=== PATIENT | female | born 1950 | race Caucasian/White ===

== ENCOUNTER 2018-08-16 12:12 | Emergency (ER) | payer MEDICARE, OTHER ==
[2018-08-16 14:24] LABS: Basophils % (A) 0 %; Eosinophils # (A) 0.2 k/uL (0-0.7); Eosinophils % (A) 2 %; HCT 39.9 % (34.0-46.0); HGB 13.2 gm/dL (11.4-16.0); Lymphocytes # (A) 1.1 k/uL (1.0-4.8); Lymphocytes % (A) 14 %; MCH 30.6 pg (25.0-35.0); MCHC 33.1 g/dL (31.0-37.0); MCV 92.4 fL (80.0-100.0); Mean Platelet Volume 6.9; Monocytes # (A) 0.5 k/uL (0-1.0); Monocytes % (A) 6 %; Neutrophils # (A) 6.4 k/uL (1.3-7.7); Neutrophils % (A) 77 %; Platelet Count 272 k/uL (150-450); RBC 4.31 m/uL (3.80-5.40); RDW 12.6 % (11.5-15.5); WBC 8.3 k/uL (3.8-10.6)
[2018-08-16 14:29] LABS: Appearance,Urine Cloudy (Clear); Bacteria,Urine Occasional /hpf; Bilirubin,Urine Negative (Negative); Blood,Urine Small (Negative); Color,Urine Yellow; Glucose,Urine (UA) Negative (Negative); Ketones,Urine Negative (Negative); Leukocyte Esterase,Urine Moderate (Negative); Mucus,Urine Occasional /hpf; Nitrite,Urine Negative (Negative); Protein,Urine 2+ (Negative); RBC,Urine 27 /hpf (0-5); Specific Gravity,Urine 1.015 (1.001-1.035); Squamous Epithelial Cell,Urine 9 /hpf (0-4); Urobilinogen,Urine <2.0 mg/dL (<2.0); WBC,Urine 6 /hpf (0-5)
[2018-08-16 14:35] LABS: Calcium 9.4 mg/dL (8.4-10.2); Potassium 4.5 mmol/L (3.5-5.1); Total Bilirubin 0.6 mg/dL (0.2-1.3); Total Protein 6.8 g/dL (6.3-8.2)
--- NOTE | 2018-08-16 15:57 | ED ---
General Adult HPI <Jesus Javier - Last Filed: 08/16/18 18:06> - General Source: patient, RN notes reviewed Mode of arrival: ambulatory Limitations: no limitations <Mehdi Hinds - Last Filed: 08/16/18 18:11> - General Chief complaint: Abdominal Pain Stated complaint: lower back & abdominal pain Time Seen by Provider: 08/16/18 15:45 - History of Present Illness Initial comments: Patient is a 68-year-old female presented to the emergency room today with a chief complaint of right-sided flank pain. Patient is not that yesterday she felt some discomfort to the right lower back. She states that she was working in the garden and also was is mostly skeletal. She states it's more she's had increased pain starting from the back radiating around to the right lower quadrant. Patient states that pain is not specifically worse with any movements. She states she did become nauseated. Currently rates pain 7/10 but states that she is comfortable does not believe pain medication. She denies any other complaints currently. Patient denies any recent fever, chills, shortness of breath, chest pain, numbness or tingling, dysuria or hematuria, constipation or diarrhea, headaches or visual changes, or any other complaints. (Mehdi Hinds) - Related Data Previous Rx's Medication Instructions Recorded Ciprofloxacin HCl [Cipro] 500 mg PO Q12HR #14 day 08/16/18 Allergies Allergy/AdvReac Type Severity Reaction Status Date / Time No Known Allergies Allergy Verified 08/16/18 12:24 Review of Systems ROS Other: All systems not noted in ROS Statement are negative. <Jesus Javier - Last Filed: 08/16/18 18:06> ROS Other: All systems not noted in ROS Statement are negative. <Mehdi Hinds - Last Filed: 08/16/18 18:11> ROS Statement: Those systems with pertinent positive or pertinent negative responses have been documented in the HPI. Past Medical History Past Medical History: Hyperlipidemia, Hypertension Additional Past Medical History / Comment(s): chronic back pain History of Any Multi-Drug Resistant Organisms: None Reported Past Surgical History: Hysterectomy, Orthopedic Surgery Past Psychological History: No Psychological Hx Reported Smoking Status: Former smoker Past Alcohol Use History: None Reported Past Drug Use History: None Reported <Mehdi Hinds - Last Filed: 08/16/18 18:11> General Exam <Jesus Javier - Last Filed: 08/16/18 18:06> Limitations: no limitations <Mehdi Hinds - Last Filed: 08/16/18 18:11> - General Exam Comments Initial Comments: General: The patient is awake and alert, in no distress, and does not appear acutely ill. Eye: Extra-ocular movements are intact. No nystagmus. There is normal conjunctiva bilaterally. No signs of icterus. Ears, nose, mouth and throat: There are moist mucous membranes and no oral lesions. Neck: The neck is supple, there is no tenderness or JVD. Cardiovascular: There is a regular rate and rhythm. No murmur, rub or gallop is appreciated. Respiratory: Lungs are clear to auscultation, respirations are non-labored, breath sounds are equal. No wheezes, stridor, rales, or rhonchi. Gastrointestinal: Admits soft on palpation. Patient does have tenderness in the right lower quadrant. Rebound, guarding or CVA tenderness. Musculoskeletal: Normal ROM, no tenderness. Sensation intact. Strength 5/5. Pulses equal bilaterally 2+. Neurological: A&O x 3. CN II-XII intact, There are no obvious motor or sensory deficits. Coordination appears grossly intact. Speech is normal. Skin: Skin is warm and dry and no rashes or lesions are noted. Psychiatric: Cooperative, appropriate mood & affect, normal judgment. (Mehdi Hinds) Course <Jesus Javier - Last Filed: 08/16/18 18:06> <Mehdi Hinds - Last Filed: 08/16/18 18:11> Vital Signs 08/16/18 08/16/18 12:22 17:59 Temperature 98.1 F 97.0 F L Pulse Rate 85 60 Respiratory 20 16 Rate Blood Pressure 122/77 125/59 O2 Sat by Pulse 99 100 Oximetry - Reevaluation(s) Reevaluation #1: 08/16/18 18:06 Patient was reevaluated by myself, Dr. Javier. Patient does have mild discomfort right CVA and minimal discomfort right flank. No ecchymosis. Patient denies any recent trauma. No fever. No white count. Case was discussed in detail with Dr. Decker with urology who will follow up with patient as an outpatient within this week. Patient is notified of this. Patient is also notified of need to bring her actual films that she did have done 1 year ago with her. Patient will be covered with quinolone for week for possible infection. (Jesus Javier) Medical Decision Making - Lab Data Result diagrams: 08/16/18 14:08 08/16/18 14:08 <Jesus Javier - Last Filed: 08/16/18 18:06> - Lab Data Result diagrams: 08/16/18 14:08 08/16/18 14:08 <Mehdi Hinds - Last Filed: 08/16/18 18:11> - Medical Decision Making CT of the abdomen and pelvis reviewed does show a prominent large right kidney. Marked erythematous reticulation seen throughout the right perirenal space. No focal drainable collection. No abnormal gas collection. No hydronephrosis or hydroureter. (Mehdi Hinds) - Lab Data Lab Results 08/16/18 08/16/18 08/16/18 Range/Units 14:08 14:08 14:08 WBC 8.3 (3.8-10.6) k/uL RBC 4.31 (3.80-5.40) m/uL Hgb 13.2 (11.4-16.0) gm/dL Hct 39.9 (34.0-46.0) % MCV 92.4 (80.0-100.0) fL MCH 30.6 (25.0-35.0) pg MCHC 33.1 (31.0-37.0) g/dL RDW 12.6 (11.5-15.5) % Plt Count 272 (150-450) k/uL Neutrophils % 77 % Lymphocytes % 14 % Monocytes % 6 % Eosinophils % 2 % Basophils % 0 % Neutrophils # 6.4 (1.3-7.7) k/uL Lymphocytes # 1.1 (1.0-4.8) k/uL Monocytes # 0.5 (0-1.0) k/uL Eosinophils # 0.2 (0-0.7) k/uL Basophils # 0.0 (0-0.2) k/uL Sodium 139 (137-145) mmol/L Potassium 4.5 (3.5-5.1) mmol/L Chloride 105 (98-107) mmol/L Carbon Dioxide 24 (22-30) mmol/L Anion Gap 10 mmol/L BUN 20 H (7-17) mg/dL Creatinine 1.29 H (0.52-1.04) mg/dL Est GFR (CKD-EPI)AfAm 50 (>60 ml/min/1.73 sqM) Est GFR (CKD-EPI)NonAf 43 (>60 ml/min/1.73 sqM) Glucose 88 (74-99) mg/dL Calcium 9.4 (8.4-10.2) mg/dL Total Bilirubin 0.6 (0.2-1.3) mg/dL AST 25 (14-36) U/L ALT 22 (9-52) U/L Alkaline Phosphatase 22 L (38-126) U/L Total Protein 6.8 (6.3-8.2) g/dL Albumin 4.0 (3.5-5.0) g/dL Urine Color Yellow Urine Appearance Cloudy H (Clear) Urine pH 6.0 (5.0-8.0) Ur Specific Schuyler 1.015 (1.001-1.035) Urine Protein 2+ H (Negative) Urine Glucose (UA) Negative (Negative) Urine Ketones Negative (Negative) Urine Blood Small H (Negative) Urine Nitrite Negative (Negative) Urine Bilirubin Negative (Negative) Urine Urobilinogen <2.0 (<2.0) mg/dL Ur Leukocyte Esterase Moderate H (Negative) Urine RBC 27 H (0-5) /hpf Urine WBC 6 H (0-5) /hpf Ur Squamous Epith Cells 9 H (0-4) /hpf Urine Bacteria Occasional H (None) /hpf Urine Mucus Occasional H (None) /hpf Disposition <Jesus Javier - Last Filed: 08/16/18 18:06> Is patient prescribed a controlled substance at d/c from ED?: No Time of Disposition: 18:11 <Mehdi Hinds - Last Filed: 08/16/18 18:11> Clinical Impression: Renal colic on right side Disposition: HOME SELF-CARE Condition: Good Instructions: Abdominal Pain (ED) Additional Instructions: Please follow-up with urologist this coming week as discussed. Please have old CAT scan films from previous CT. Please use antibiotic as prescribed. Please return to emergency room for any symptoms increase or worsen or for any other concerns. Prescriptions: Ciprofloxacin HCl [Cipro] 500 mg PO Q12HR #14 day Referrals: Nonstaff,Physician [Primary Care Provider] - 1-2 days José Beavers MD [STAFF PHYSICIAN] - 1-2 days
--- NOTE | 2018-08-16 17:44 | CT ---
EXAMINATION TYPE: CT abdomen pelvis wo con DATE OF EXAM: 08/16/2018 COMPARISON: HISTORY: Right side flank pain. CT DLP: 632.7 mGycm Automated exposure control for dose reduction was used. TECHNIQUE: Helical acquisition of images was performed from the lung bases through the pelvis. FINDINGS: LUNG BASES: No significant abnormality is appreciated. LIVER/GB: No definite acute process. Multifocal smoothly marginated low attenuation homogeneous liver foci are noted, likely hepatic cysts which can be proven with MRI. PANCREAS: No significant abnormality is seen. SPLEEN: No significant abnormality is seen. ADRENALS: No significant abnormality is seen. KIDNEYS AND URETERS, AND BLADDER: The ipsilateral right kidney is prominently enlarged and is markedl y indistinct, with associated marked edematous reticulation seen throughout the right perirenal space . No focal drainable fluid collections. No abnormal gas collections. This does not appear to be hydro nephrosis or hydroureter. The differential for this finding is traumatic/atraumatic hemorrhage versus infection i.e. pyelonephritis. Would recommend further catheterization with CT urogram, complete wit h delayed imaging to evaluate the collecting system versus the renal parenchyma. It is noted that pro minent left parapelvic cysts are seen, no left-sided obstructive uropathy. No right or left-sided brigido al calcifications evident. FREE AIR: No free air is visualized RETROPERITONEAL ADENOPATHY: None visualized REPRODUCTIVE ORGANS: No significant abnormality is seen PELVIC ADENOPATHY: None visualized. OSSEOUS STRUCTURES: No significant abnormality is seen. BOWEL: No significant abnormality is seen. IMPRESSION: RIGHT RENAL PATHOLOGY.
[2018-08-16 18:01] VITALS: BP 125/59; PULSE 60; RESP 16; TEMP 97
== END 2018-08-16 18:31 | disposition home or self-care (01) ==
LOC: EC 12:12
DX: N23 Unspecified renal colic (principal); Z87.891 Personal history of nicotine dependence
CPT/HCPCS: 36415; 74176; 80053; 81001; 85025; 99284

== ENCOUNTER → 2018-09-30 | Outpatient (CLI) | payer MEDICARE, OTHER ==
--- NOTE | 2018-10-01 16:14 | CT ---
EXAMINATION TYPE: CT abdomen w con DATE OF EXAM: 09/30/2018 HISTORY: Abnormal findings of urinary organs CT DLP: 731.4mGycm Automated Exposure Control for Dose Reduction was Utilized. CONTRAST: CT scan of the abdomen and pelvis is performed with IV Contrast, patient injected with 80 mL of Isovu e 300. COMPARISON: 08/16/2018 and 09/11/2017 FINDINGS: LUNG BASES: Minimal bibasilar subsegmental dependent atelectasis is seen. LIVER/GB: Multiple hepatic cystic lesions are stable in comparison the prior of 08/16/2018 and 017. No new suspicious hepatic lesions are seen. No intrahepatic biliary ductal dilatation. No cholel ithiasis. PANCREAS: No significant abnormality is seen. No pancreatic ductal dilatation. SPLEEN: No significant abnormality is seen. No splenomegaly. ADRENALS: No significant abnormality is seen. No nodularity or thickening. KIDNEYS: In comparison to the prior 08/16/2018 there is new right renal atrophy. The previously seen p erinephric edema now presents is a focal fluid collection with 1.3 cm greatest thickness and an exoph ytic cystic component measuring 2.1 cm more anteriorly on image 31. This appears overall subcapsular with peripheral enhancing rim. These findings were not present on the exam of 09/11/2017. Bilateral extra renal pelvises and left renal sinus cysts are present. The renal parenchyma enhances symmetrically. There are lobulated contours of the kidneys, right greater than left. No renal sinus f at stranding. Resolution of the previously seen extensive right perinephric fat stranding on the exam of 08/16/2018. BOWEL: Scattered colonic diverticula are seen without pericolonic fat stranding. LYMPH NODES: No greater than 1cm abdominal or pelvic lymph nodes are appreciated. OSSEOUS STRUCTURES: Grade 1 anterolisthesis of L5 on S1 is seen secondary to bilateral pars interarti cularis defects. OTHER: Mild atherosclerosis is seen of the abdominal aorta and its branches. IMPRESSION: Right renal peripherally enhancing subcapsular fluid collection. Given the prior findings on 08/16/2018 posttraumatic/postinfectious subcapsular hematoma/seroma is most likely however additio nal differentials for similar findings would be for less likely etiologies of renal lymphoma and lymp hangiectasia. There is no alteration in renal physiology as the kidneys enhance and excrete symmetric ally.
== END | disposition home or self-care (01) ==
LOC: RADCTMAIN 10:44
PROVIDERS: ATTEND Urology
DX: R93.49 Abnormal radiologic findings on diagnostic imaging of other urinary organs (principal)
CPT/HCPCS: 82565; 84520; 74160; 36415; Q9967

== ENCOUNTER → 2019-01-10 | Outpatient (CLI) | payer MEDICARE, OTHER ==
--- NOTE | 2019-01-10 10:00 | CT ---
EXAMINATION TYPE: CT abdomen w con DATE OF EXAM: 01/10/2019 COMPARISON: 09/30/2018 HISTORY: Perirenal hematoma CT DLP: 1006 mGycm CONTRAST: CT scan of the abdomen is performed with Oral Contrast and with IV Contrast, patient injected with 10 0 ml mL of Isovue 300. FINDINGS: LUNG BASES-: No visible nodule. No infiltrate. LIVER/GB: No calcified gallstones. Scattered hepatic cystic changes noted. No solid space occupyin g hepatic lesion. Biliary tree is of normal caliber. PANCREAS: No inflammation. No distinct mass. SPLEEN: No splenic enlargement. No lesion seen. ADRENALS: No nodule. No thickening. KIDNEYS/BLADDER: Resolution of previously noted right-sided perirenal hematoma. Renal cystic changes remain stable. No solid renal lesions identified. No hydronephrosis. No nephrolithiasis. Urinary bladder grossly unremarkable. BOWEL: Normal appendix. Normal bowel caliber. Wall thickening right hemicolon may reflect underlying colitis. Correlate clinically. The cecum is not imaged. LYMPH NODES: No greater than 1cm abdominal or pelvic lymph nodes are appreciated. AORTA: No significant abnormality. OSSEOUS STRUCTURES: No significant abnormality is seen. OTHER: No significant additional abnormality is seen. IMPRESSION: 1. Resolution of previously noted right-sided perirenal hematoma. 2.Wall thickening right hemicolon may reflect underlying colitis. Correlate clinically.
== END | disposition home or self-care (01) ==
LOC: RADCTMAIN 08:10
PROVIDERS: ATTEND Urology
DX: K63.89 Other specified diseases of intestine (principal)
CPT/HCPCS: 82565; 84520; 74160; Q9967

== ENCOUNTER → 2019-02-22 | Outpatient (CLI) | payer MEDICARE, OTHER ==
[2019-02-22 13:27] LABS: Basophils % (A) 0 %; Eosinophils # (A) 0.1 k/uL (0-0.7); Eosinophils % (A) 3 %; HCT 39.3 % (34.0-46.0); HGB 12.8 gm/dL (11.4-16.0); Lymphocytes # (A) 1.3 k/uL (1.0-4.8); Lymphocytes % (A) 31 %; MCH 29.7 pg (25.0-35.0); MCHC 32.6 g/dL (31.0-37.0); Mean Platelet Volume 7.2; Monocytes # (A) 0.4 k/uL (0-1.0); Monocytes % (A) 9 %; Neutrophils # (A) 2.4 k/uL (1.3-7.7); Neutrophils % (A) 56 %; Platelet Count 266 k/uL (150-450); RBC 4.32 m/uL (3.80-5.40); WBC 4.3 k/uL (3.8-10.6)
[2019-02-22 14:42] LABS: Erythrocyte Sedimentation Rate 17 mm/hr (0-20)
[2019-02-22 18:51] LABS: ALT 15 U/L (8-44); AST 23 U/L (13-35); Albumin/Globulin Ratio 2.16 (1.60-3.17); Calcium 9.2 mg/dL (8.7-10.3); Carbon Dioxide 25.5 mmol/L (21.6-31.8); Chloride 108 mmol/L (96-109); Globulin 1.9 g/dL (1.6-3.3); Glucose 91 mg/dL (70-110); Potassium 4.4 mmol/L (3.5-5.5); Sodium 143 mmol/L (135-145); Total Bilirubin 0.4 mg/dL (0.2-1.2)
[2019-02-23 09:28] LABS: Alkaline Phosphatase <20
== END ==
LOC: LABWHC1 12:41
PROVIDERS: ATTEND Family Medicine
DX: R19.7 Diarrhea, unspecified (principal)
CPT/HCPCS: 36415; 80053; 85025; 85652

== ENCOUNTER → 2019-03-30 | Outpatient (CLI) | payer MEDICARE, OTHER ==
[2019-03-30 11:22] LABS: Basophils % (A) 1 %; Eosinophils # (A) 0.1 k/uL (0-0.7); Eosinophils % (A) 2 %; HCT 40.9 % (34.0-46.0); HGB 13.2 gm/dL (11.4-16.0); Lymphocytes # (A) 1.1 k/uL (1.0-4.8); Lymphocytes % (A) 20 %; MCH 29.2 pg (25.0-35.0); MCHC 32.3 g/dL (31.0-37.0); MCV 90.4 fL (80.0-100.0); Mean Platelet Volume 7.1; Monocytes # (A) 0.4 k/uL (0-1.0); Monocytes % (A) 8 %; Neutrophils # (A) 3.6 k/uL (1.3-7.7); Neutrophils % (A) 67 %; Platelet Count 307 k/uL (150-450); RBC 4.52 m/uL (3.80-5.40); WBC 5.4 k/uL (3.8-10.6)
[2019-03-30 12:56] LABS: Erythrocyte Sedimentation Rate 11 mm/hr (0-20)
[2019-03-30 19:06] LABS: ALT 20 U/L (8-44); AST 24 U/L (13-35); Albumin/Globulin Ratio 2.05 (1.60-3.17); Alkaline Phosphatase 19 U/L (41-126); C Reactive Protein <0.4 mg/dL (0.0-0.8); Calcium 9.2 mg/dL (8.7-10.3); Carbon Dioxide 24.7 mmol/L (21.6-31.8); Chloride 109 mmol/L (96-109); Glucose 93 mg/dL (70-110); Potassium 4.8 mmol/L (3.5-5.5); Sodium 142 mmol/L (135-145); Total Bilirubin 0.4 mg/dL (0.3-1.2); Total Protein 6.1 g/dL (6.2-8.2)
[2019-03-30 20:31] LABS: Gliadin AB IgA, Unit <0.2 U/mL
== END | disposition home or self-care (01) ==
LOC: LABWHC1 10:12
PROVIDERS: ATTEND Internal Medicine
DX: R19.4 Change in bowel habit (principal)
CPT/HCPCS: 36415; 80053; 83516; 83993; 84439; 84443; 85025; 85652; 86140; 87045; 87046; 87328; 87329

== ENCOUNTER → 2019-04-14 | Day surgery (SDC) | payer MEDICARE, OTHER ==
[~2019-04-14] MED LIST: LACTATED RINGERS 1,000 ML IV ONE; LIDOCAINE 1% 20 ML VIAL (10MG/ML) FOR IV START INTRADERMA ONE; LIDOCAINE 1% INJ 10MG/ML (20 ML MDV) ONE; MIDAZOLAM 2 MG/2 ML VIAL ONE; PROPOFOL 10 MG/ML 20 ML VIAL IV ONE; fentaNYL (PF) 50 MCG/ML 2 ML AMP ONE
[2019-04-14 13:48] VITALS: TEMP 97.8
--- NOTE | 2019-04-14 15:30 | P.PCN ---
Date of Procedure: 04/14/19 Description of Procedure: Brief history: 68-year-old female who was initially seen in consult with complaints of a change in her bowel habits with reports of diarrhea and mucus per rectum for 2-3 months in duration. This was improved with cydi-tbd-[id number] antidiarrheal medications. The patient was also reporting increased gas. She had a colonoscopy in 09/2017 which was significant for polyps. She had a CT of the abdomen in evaluation in 12/2018 which showed a right-sided colitis. She denied any travel, sick contacts or unusual foods. No family history of Crohn's or ulcerative colitis. The patient also reports reflux disease. No dysphagia or odynophagia. Procedure performed: Esophagogastroduodenoscopy with biopsy Colonoscopy with polypectomy Estimated blood loss: Minimal. Preoperative diagnosis: GERD, change in bowel habits, abnormal CT imaging of the abdomen with right- sided colitis stray of colon polyps Anesthesia: MAC Procedure: After informed consent was obtained from the patient was brought into the endoscopy unit and IV sedation was administered by anesthesia under continuous monitoring. Initially upper endoscopy was done. The Olympus GF 190 video endoscope was inserted inserted into the mouth and esophagus intubated without any difficulty and was gradually advanced into the stomach and duodenum and carefully examined. The bulb and second part of the duodenum appeared normal, with biopsies taken. The scope was then withdrawn into the stomach adequately insufflated with air and upon careful examination the antrum and body, cardia and fundus appeared normal, except for some mild scattered erythema and superficial erosions of the antrum and body suggestive of mild to moderate gastritis with biopsies taken. Small hiatal hernia noted on retroflexion. The scope was then withdrawn into the esophagus. The GE junction was located at 37 cm to the incisors. It appeared regular with no erythema erosions or ulcerations. Rest of the esophagus appeared normal. Patient tolerated the procedure well. At this time the patient continued to remain sedation. Initial digital rectal examination was normal. Olympus CF 190 video colonoscope was then inserted into the rectum and gradually advanced to the cecum without any difficulty. Careful examination was performed as the scope was gradually being withdrawn. The prep was excellent. The terminal ileum was intubated and appeared normal. The cecum, ascending colon, transverse colon, descending colon, sigmoid colon and rectum appeared normal. Diminutive polyps measuring 2 and 3 mm in the descending colon were noted and removed with cold forcep polypectomy. Diminutive 4 mm sessile sigmoid colon polyp removed with cold forcep polypectomy. Moderate pandiverticulosis, worse in the sigmoid and left colon. Mild internal hemorrhoids. Retroflexion was performed in the rectum and no lesions were noted. Patient tolerated the procedure well. Impression: 1. Small hiatal hernia. Mild gastritis antrum and body, biopsied. Duodenal biopsies. 2. 3 Diminutive polyps, 2 in the descending colon and one in the sigmoid removed with cold forceps Polypectomy. Moderate pandiverticulosis were discussed in the sigmoid colon. Mild internal hemorrhoids. Recommendations: Findings of this examination were discussed with the patient as well as her . Await pathology from biopsies. Okay for high-fiber diet. Continue reflux occasions. Follow up with gastroenterology as previously scheduled. Anticipate repeat colonoscopy in 5 years.
[2019-04-14 16:22] VITALS: BP 137/84; PULSE 61; RESP 18
== END ==
LOC: ORWHC2ENDO 13:06
PROVIDERS: ATTEND Internal Medicine
DX: K29.50 Unspecified chronic gastritis without bleeding (principal); K63.5 Polyp of colon; I10 Essential (primary) hypertension; E78.49 Other hyperlipidemia; Z87.891 Personal history of nicotine dependence; Z79.899 Other long term (current) drug therapy; K21.9 Gastro-esophageal reflux disease without esophagitis; K44.9 Diaphragmatic hernia without obstruction or gangrene; K64.8 Other hemorrhoids
CPT/HCPCS: 45380; 43239; J2250; J2001; J3010; J2704; 88305

== ENCOUNTER → 2021-01-17 | Outpatient (CLI) | payer MEDICARE, OTHER ==
--- NOTE | 2021-01-18 14:01 | MM ---
Reason for exam: screening (asymptomatic). Last mammogram was performed 2 years and 5 months ago. History: Patient is postmenopausal. Family history of breast cancer in maternal grandmother. Excisional biopsy of the left breast, 2018. Physical Findings: A clinical breast exam by your physician is recommended on an annual basis and results should be correlated with mammographic findings. MG 3D Screening Mammo W/Cad Bilateral CC and MLO view(s) were taken. Prior study comparison: August 25, 2018, mammogram. August 12, 2018, mammogram. There are scattered fibroglandular densities. There is no discrete abnormality. No significant changes when compared with prior studies. ASSESSMENT: Negative, BI-RAD 1 RECOMMENDATION: Routine screening mammogram of both breasts in 1 year.
== END | disposition home or self-care (01) ==
LOC: RADMAMWWP 09:09
PROVIDERS: ATTEND Family Medicine
DX: Z12.31 Encounter for screening mammogram for malignant neoplasm of breast (principal)
CPT/HCPCS: 77063; 77067

== ENCOUNTER → 2022-02-13 | Outpatient (CLI) | payer MEDICARE, OTHER ==
[2022-02-14 16:25] LABS: Coronavirus SARS CoV-2 Not Detected (Not Detected)
== END | disposition home or self-care (01) ==
LOC: LABWHC1 10:50
PROVIDERS: ATTEND Family Medicine
DX: Z20.822 Contact with and (suspected) exposure to COVID-19 (principal); J06.9 Acute upper respiratory infection, unspecified
CPT/HCPCS: 87502; U0003